=== PATIENT | male | born 1990 | race Caucasian/White ===

== ENCOUNTER 2019-05-29 19:22 | Emergency (ER) | payer SELFPAY ==
[2019-05-29] MEDS ORDERED: Ibuprofen 800 MG TAB ONE (19:48)
[2019-05-29] MEDS ORDERED: Acetaminophen 500 MG TAB ONE (19:48)
== END 2019-05-29 19:54 | disposition home or self-care (01) ==
LOC: MADERS 19:22
DX: M67.432 Ganglion, left wrist (principal); F17.210 Nicotine dependence, cigarettes, uncomplicated